=== PATIENT | male | born 1965 | race Caucasian/White ===

== ENCOUNTER 2018-08-11 09:34 | Emergency (ER) | payer BC, OTHER ==
--- NOTE | 2018-08-11 09:58 | PDOC ---
History of Present Illness - General Chief Complaint: Pain Stated Complaint: STOMACH ACHE SINCE LAST NIGHT Time Seen by Provider: 08/11/18 09:57 - History of Present Illness Initial Comments: 08/11/18 12:47 Chief complaint: Abdominal pain History of present illness: Awoke this morning with epigastric pain, mild nausea , no vomiting or diarrhea. Review of systems: No fever/chills, headache, URI symptoms, sore throat, cough, chest pain, shortness of breath, hematemesis, melena, bloody stool, urinary tract symptoms, visual or focal neurologic symptoms. Past medical history: No GI disease or abdominal surgery Social/family history: No tobacco alcohol or nonprescription drugs Physical exam: Alert and oriented well-developed well-nourished no acute distress cooperative Afebrile, vital signs normal except for mildly elevated blood pressure which normalized with rest and observation No pallor or icterus. ENT clear Neck supple without bruit mass or nodes Chest clear CV regular without murmur rub or gallop Abdomen nondistended. Bowel sounds normal. Soft without mass tenderness organomegaly. No CVAT. Impression: Dyspepsia versus mild gastroenteritis Plan: CBC and chemistries without significant abnormalities. Pain improved with administration of Protonix and fluids. Continue Protonix. Rest and light diet. Follow-up primary physician or return to ER if symptoms worsen. Fully ambulatory and in no pain or other distress upon discharge Past History - Past Medical History Allergies/Adverse Reactions: Allergies Allergy/AdvReac Type Severity Reaction Status Date / Time No Known Allergies Allergy Unverified 08/11/18 09:36 Home Medications: Ambulatory Orders Lisinopril 20 mg PO DAILY 08/11/18 Pantoprazole Sodium [Protonix] 40 mg PO DAILY #14 tablet. 08/11/18 COPD: No GI Disorders: Yes (ACID REFLUX) HTN: Yes - Surgical History Appendectomy: Yes - Suicide/Smoking/Psychosocial Hx Smoking History: Never smoked Information on smoking cessation initiated: No Hx Alcohol Use: Yes (SOCIAL) Drug/Substance Use Hx: No *Physical Exam - Vital Signs Last Vital Signs Temp Pulse Resp BP Pulse Ox 97.7 F 57 L 16 162/90 98 08/11/18 09:36 08/11/18 09:36 08/11/18 09:36 08/11/18 09:36 08/11/18 09:36 ED Treatment Course - LABORATORY CBC & Chemistry Diagram: 08/11/18 10:36 08/11/18 10:30 *DC/Admit/Observation/Transfer Diagnosis at time of Disposition: Viral gastroenteritis - Discharge Dispostion Disposition: HOME Condition at time of disposition: Improved Decision to Admit order: No - Prescriptions Prescriptions: Pantoprazole Sodium [Protonix] 40 mg PO DAILY #14 tablet.dr - Referrals Referrals: Luisana Kelsey MD [Primary Care Provider] - 3 days - Patient Instructions Printed Discharge Instructions: DI for Viral Gastroenteritis -- Adult - Post Discharge Activity Forms/Work/School Notes: Back to Work
[2018-08-11 10:12] VITALS: BMI 25.7
[2018-08-11] MEDS ORDERED: PANTOPRAZOLE SODIUM 40 MG in SODIUM CHLORIDE 100 ML IVPB ONE (10:53)
[2018-08-11] MEDS ORDERED: ONDANSETRON 4 MG/2 ML VIAL IVPB ONE (10:53)
[2018-08-11] MEDS ORDERED: SODIUM CHLORIDE 1,000 ML IV STA (10:54)
[2018-08-11 10:59] LABS: BASO % 0.1 % (0-2.0); EOS % 0.1 % (0-4.5); HEMATOCRIT 44.6 % (35.4-49); HEMOGLOBIN 15.1 GM/dl (11.7-16.9); LYMPH % 6.7 % (8-40); MCH 30.2 pg (25.7-33.7); MCHC 33.8 g/dl (32.0-35.9); MEAN CELL VOLUME 89.3 fl (80-96); MEAN PLT VOLUME 9.4 fl (7.5-11.1); MONO % 2.2 % (3.8-10.2); NEUT % 90.9 % (42.8-82.8); PLATELET COUNT 214 K/MM3 (134-434); RDW 12.2 % (11.9-15.9); WHITE BLOOD COUNT 12.7 K/mm3 (4.0-10.8)
[2018-08-11 11:06] LABS: ALBUMIN 4.1 g/dl (3.4-5.0); BILIRUBIN,TOTAL 0.8 mg/dl (0.2-1); CALCIUM 9.4 mg/dl (8.5-10); CREATININE 0.7 mg/dl (0.55-1.3); POTASSIUM 4.1 mmol/L (3.5-5.1); TOT PROT 6.5 g/dl (6.4-8.2)
[2018-08-11] MEDS ORDERED: ONDANSETRON 4 MG/2 ML VIAL ONE (11:16)
[2018-08-11] MEDS ORDERED: PANTOPRAZOLE SODIUM 40 MG VIAL ONE (11:16)
[2018-08-11 13:13] VITALS: BP 152/90; PULSE 68; TEMP 97.8
--- NOTE | 2018-08-12 04:31 | CONSULT ---
Consult - Alcohol/Substance Use Hx Alcohol Use: Yes (SOCIAL) - Smoking History Smoking history: Never smoked Home Medications - Allergies Allergies/Adverse Reactions: Allergies Allergy/AdvReac Type Severity Reaction Status Date / Time No Known Allergies Allergy Unverified 08/11/18 09:36 - Home Medications Home Medications: Ambulatory Orders Lisinopril 20 mg PO DAILY 08/11/18 Pantoprazole Sodium [Protonix] 40 mg PO DAILY #14 tablet. 08/11/18 Physical Exam Vital Signs: Vital Signs Temperature 97.8 F 08/11/18 13:12 Pulse Rate 68 08/11/18 13:12 Respiratory Rate 16 08/11/18 13:12 Blood Pressure 152/90 08/11/18 13:12 O2 Sat by Pulse Oximetry (%) 98 08/11/18 13:12 Labs: CBC, BMP 08/11/18 10:36 08/11/18 10:30
== END 2018-08-11 13:14 | disposition home or self-care (01) ==
LOC: FER 09:34
PROC: 3E033GC Introduction of Other Therapeutic Substance into Peripheral Vein, Percutaneous Approach (ICD-10-PCS; principal; 2018-08-11)
PROC: 3E0337Z Introduction of Electrolytic and Water Balance Substance into Peripheral Vein, Percutaneous Approach (ICD-10-PCS; 2018-08-11)
DX: A08.4 Viral intestinal infection, unspecified (principal); B97.89 Other viral agents as the cause of diseases classified elsewhere; I10 Essential (primary) hypertension; K21.9 Gastro-esophageal reflux disease without esophagitis
CPT/HCPCS: 36415; 80053; 81003; 83690; 85025; 99283-25; J7030

== ENCOUNTER 2018-08-11 23:44 | Emergency (ER) | payer OTHER ==
[2018-08-11 23:50] VITALS: BMI 25.7
--- NOTE | 2018-08-12 00:09 | PDOC ---
History of Present Illness - General Chief Complaint: Pain, Acute Stated Complaint: ABD PAIN/CONSTIPATION Time Seen by Provider: 08/12/18 00:03 History Source: Patient Exam Limitations: No Limitations - History of Present Illness Initial Comments: 08/12/18 00:15 This is a 53-year-old male with history of hypertension who is otherwise healthy. Patient was here this morning complaining of epigastric type abdominal pain and seen by Dr. Cruz. Patient had a workup done that did show a white count of 12.7 with a left shift but otherwise was normal. Patient was given some Pepcid and discharged home. Patient said that throughout the day that he has gotten progressively worse with works up to date and some vomiting now. Patient is also concerned that he did not have a bowel movement today but did have a small one yesterday. Patient denies any fevers or chills. Patient denies any cough congestion sure shortness of breath. Patient denies any other associated symptoms. Patient does say that the pain radiates toward to his back. Allergies: as per nursing notes Past Medical History: none Social history: Lives with family. No smoking. No alcohol. No illicit drugs. Surgical history: None General: No fevers or chills, no weakness, no weight loss HEENT: No change in vision. No sore throat,. No ear pain CardioVascular: no chest discomfort. No shortness of breath Respiratory:No cough, or wheezing. Gastrointestinal: Abdominal pain, nausea and vomiting Genitourinary: No dysuria, hematuria, or frequency Musculoskeletal: No joint or muscle pain or swelling Neurologic: No headache, vertigo, dizziness or loss of consciousness Psychiatric: nor depression Skin: No rashes or easy bruising Endocrine: no increased thirst or abnormal weight change Allergic: no skin or latex allergy All other systems reviewed and normal Exam: General: Well-nourished well-developed individual, no acute distress HEENT: Throat: Normal, tonsils normal, no erythema or exudate Neck: Supple, no meningeal signs, no lymphadenopathy Eyes::Pupils equal reactive and round, extraocular motion intact Chest: Nontender to palpation Cardiac: S1-S2 normal, regular rate and rhythm, no murmurs rubs or gallops Respiratory: Lungs clear to auscultation bilateral Abdomen: Soft, nondistended, normal bowel sounds, abdomen is tender to palpation in the epigastric area otherwise exam is normal, there is no guarding or rebound Extremities: Warm, dry, no cyanosis, clubbing, or edema Skin: No rashes Neuro: Alert and oriented x3, CN II - XII intact, nonfocal exam with normal strength, normal sensation, normal reflexes, normal gait, Psych: Normal mood and affect Assessment and plan: This is a 53-year-old male with epigastric pain radiating to the back some nausea vomiting who is returning to the ED after being evaluated approximately 12 hours ago. Patient did have a white count with left shift at that time and CT abdomen was not obtained so CT abdomen will be obtained in addition to that I will repeat the labs including CBC, comp, and will also do an EKG and cardiac enzymes as patient does have a history of hypertension. 08/12/18 04:27 I didcussed the patient with Dr. Chandler from surgery and he indicated that the patient is not a surgical candidate but should have ERCP. We do not have a GI doctor that does ERCP on the weekend so patient will be transferred to [facility]. [facility] was contacted and he has been accepted to the [facility] Dr. Haji is accepting physician Past History - Past Medical History Allergies/Adverse Reactions: Allergies Allergy/AdvReac Type Severity Reaction Status Date / Time No Known Allergies Allergy Unverified 08/11/18 09:36 Home Medications: Ambulatory Orders Lisinopril 20 mg PO DAILY 08/11/18 Pantoprazole Sodium [Protonix] 40 mg PO DAILY #14 tablet. 08/11/18 COPD: No GI Disorders: Yes (ACID REFLUX) HTN: Yes - Surgical History Appendectomy: Yes - Suicide/Smoking/Psychosocial Hx Smoking History: Never smoked Hx Alcohol Use: Yes (SOCIAL) Drug/Substance Use Hx: No *Physical Exam - Vital Signs Last Vital Signs Temp Pulse Resp BP Pulse Ox 99 F 82 16 166/96 97 08/11/18 23:45 08/11/18 23:45 08/11/18 23:45 08/11/18 23:45 08/11/18 23:45 ED Treatment Course - LABORATORY CBC & Chemistry Diagram: 08/12/18 00:15 08/12/18 00:15 *DC/Admit/Observation/Transfer Diagnosis at time of Disposition: Acute cholecystitis due to biliary calculus - Discharge Dispostion Disposition: TRANSFER ACUTE CARE/OTHER HOSP Condition at time of disposition: Stable Decision to Admit order: No - Referrals Referrals: Luisana Kelsey MD [Primary Care Provider] - - Patient Instructions - Post Discharge Activity
[2018-08-12] MEDS ORDERED: ONDANSETRON 4 MG/2 ML VIAL IVPB ONE (00:12)
[2018-08-12] MEDS ORDERED: SODIUM CHLORIDE 1,000 ML IV ONE (00:12)
[2018-08-12] MEDS ORDERED: morphine CARPU-JECT 2 MG/1 ML DISP.SYRIN IVPUSH ONE ×2 (00:12→01:44)
[2018-08-12] MEDS ORDERED: FAMOTIDINE 20 MG/50 ML IVPB 20 MG/50 ML MG IVPB ONE ×2 (00:14→00:21)
[2018-08-12] MEDS ORDERED: ONDANSETRON 4 MG/2 ML VIAL ONE (00:21)
[2018-08-12] MEDS ORDERED: morphine SULFATE 4 MG/ML VIAL ONE ×2 (00:21→01:54)
[2018-08-12 01:35] LABS: BASO % 0.1 % (0-2.0); HEMATOCRIT 42.9 % (35.4-49); HEMOGLOBIN 14.6 GM/dL (11.7-16.9); LYMPH % 10.3 % (8-40); MCH 29.9 pg (25.7-33.7); MEAN CELL VOLUME 87.8 fl (80-96); MONO % 5.8 % (3.8-10.2); NEUT % 83.8 % (42.8-82.8); PLATELET COUNT 186 K/MM3 (134-434); RBC 4.89 M/mm3 (4.00-5.60); WHITE BLOOD COUNT 14.3 K/mm3 (4.0-10.0)
[2018-08-12] MEDS ORDERED: KETOROLAC TROMETHAMINE 30 MG/1 ML VIAL IVPUSH ONE (01:44)
[2018-08-12] MEDS ORDERED: KETOROLAC TROMETHAMINE 30 MG/1 ML VIAL ONE (01:54)
[2018-08-12 01:57] LABS: ALBUMIN 3.7 g/dl (3.4-5.0); ALK PHOS 92 U/L (45-117); ANION GAP 8 MMOL/L (8-16); BILIRUBIN,TOTAL 0.9 mg/dL (0.2-1); BLOOD UREA NITROGEN 7 mg/dL (7-18); CALCIUM 8.8 mg/dL (8.5-10.1); CHLORIDE 102 mmol/L (98-107); CO2 29 mmol/L (21-32); CREATININE 0.9 mg/dL (0.55-1.3); GLUCOSE,RANDOM 130 mg/dL (74-106); LIPASE 56 U/L (73-393); POTASSIUM 3.6 mmol/L (3.5-5.1); SGOT/AST 9 U/L (15-37); SGPT/ALT 22 U/L (13-61); SODIUM 139 mmol/L (136-145); TOT PROT 6.3 g/dl (6.4-8.2)
[2018-08-12 03:31] VITALS: BP 108/56; PULSE 63; TEMP 98.4
[2018-08-12] MEDS ORDERED: PIPERACILLIN/TAZOB 4.5 GM 4.5 GM in DEXTROSE 5%-WATER 100 ML IVPB ONE (03:32)
[2018-08-12] MEDS ORDERED: PIPERACILLIN/TAZOBACTAM 4.5 GM VIAL IVPB ONE (03:34)
--- NOTE | 2018-08-12 10:51 | EKG ---
Test Reason : Blood Pressure : / mmHG Vent. Rate : 063 BPM Atrial Rate : 063 BPM P-R Int : 144 ms QRS Dur : 094 ms QT Int : 390 ms P-R-T Axes : 077 -10 035 degrees QTc Int : 399 ms NORMAL SINUS RHYTHM INCOMPLETE RIGHT BUNDLE BRANCH BLOCK NO PREVIOUS ECGS AVAILABLE Confirmed by KIMBERLEE ORTIZ MD ([id number]) on 08/12/2018 10:50:58 AM Referred By: MD OLGUIN Confirmed By:KIMBERLEE ORTIZ MD
== END 2018-08-12 06:25 | disposition short-term general hospital (02) ==
LOC: FER 23:44
PROC: 3E033NZ Introduction of Analgesics, Hypnotics, Sedatives into Peripheral Vein, Percutaneous Approach (ICD-10-PCS; principal; 2018-08-11)
PROC: 3E033GC Introduction of Other Therapeutic Substance into Peripheral Vein, Percutaneous Approach (ICD-10-PCS; 2018-08-11)
PROC: 3E0333Z Introduction of Anti-inflammatory into Peripheral Vein, Percutaneous Approach (ICD-10-PCS; 2018-08-11)
PROC: 3E0337Z Introduction of Electrolytic and Water Balance Substance into Peripheral Vein, Percutaneous Approach (ICD-10-PCS; 2018-08-11)
PROC: 3E03329 Introduction of Other Anti-infective into Peripheral Vein, Percutaneous Approach (ICD-10-PCS; 2018-08-11)
DX: K81.0 Acute cholecystitis (principal); I10 Essential (primary) hypertension; K21.9 Gastro-esophageal reflux disease without esophagitis
CPT/HCPCS: 36415; 74177-TC; 76705-TC; 80053; 82550; 83690; 84484; 85025; 93005; 99283-25; J7030